=== PATIENT | female | born 1995 | race Caucasian/White ===

== ENCOUNTER 2018-08-20 00:29 | Emergency (ER) | payer OTHER ==
[~2018-08-20] VITALS: Ht 165.1 cm; Wt 86.2 kg
[2018-08-20] MEDS ORDERED: ALBUTEROL2.5 MG/31 INH (00:40)
[2018-08-20] MEDS ORDERED: MOBIC15 MG PO (01:04)
[2018-08-20 01:39] VITALS: BP 133/112
== END 2018-08-20 01:40 | disposition home or self-care (01) ==
LOC: M.ERS 00:29
DX: S70.02XA Contusion of left hip, initial encounter (principal); S40.022A Contusion of left upper arm, initial encounter; F17.210 Nicotine dependence, cigarettes, uncomplicated; Z90.49 Acquired absence of other specified parts of digestive tract; Z98.890 Other specified postprocedural states; W01.0XXA Fall on same level from slipping, tripping and stumbling without subsequent striking against object, initial encounter; Y93.89 Activity, other specified; Y92.89 Other specified places as the place of occurrence of the external cause; Y99.8 Other external cause status

== ENCOUNTER 2018-10-20 06:29 | Emergency (ER) | payer OTHER ==
[~2018-10-20] VITALS: Ht 165.1 cm; Wt 82.1 kg
[~2018-10-20 06:29] MED LIST: ALBUTEROL2.5 MG/31 INH; MOBIC15 MG PO
[2018-10-20] MEDS ORDERED: NOHOMEMEDICATIONS (06:41)
[2018-10-20] MEDS ORDERED: NAPROSYN500 MG PO (07:28)
[2018-10-20 07:46] VITALS: BP 124/68
== END 2018-10-20 07:46 | disposition home or self-care (01) ==
LOC: M.ERS 06:29
DX: S90.111A Contusion of right great toe without damage to nail, initial encounter (principal); F17.200 Nicotine dependence, unspecified, uncomplicated; Z90.49 Acquired absence of other specified parts of digestive tract; W20.8XXA Other cause of strike by thrown, projected or falling object, initial encounter; Y92.89 Other specified places as the place of occurrence of the external cause; Y93.89 Activity, other specified; Y99.8 Other external cause status

== ENCOUNTER 2019-02-07 15:40 | Emergency (ER) | payer OTHER ==
[~2019-02-07] VITALS: Ht 165.1 cm; Wt 87.5 kg
[~2019-02-07 15:40] MED LIST changes: +NAPROSYN500 MG PO; +NOHOMEMEDICATIONS
[2019-02-07 16:04] LABS: URINE BILIRUBIN NEGATIVE (Negative); URINE BLOOD NEGATIVE (Negative); URINE CLARITY CLEAR; URINE COLOR YELLOW; URINE GLUCOSE-RANDOM NEGATIVE (Negative); URINE KETONES NEGATIVE (Negative); URINE LEUKOCYTES-REFLEX TRACE (Negative); URINE NITRITE-REFLEX NEGATIVE (Negative); URINE PROTEIN NEGATIVE (Negative); URINE SPECIFIC GRAVITY 1.025 (1.005-1.030); URINE UROBILINOGEN 0.2 E.U./dl (0.2-1.0)
[2019-02-07 16:11] LABS: CASTS None Seen /LPF (None Seen); CRYSTALS None Seen /LPF (None Seen); MUCUS None Seen strn/LPF (None Seen); SQUAMOUS >10 Many /LPF (0-3)
[2019-02-07 16:12] LABS: BACTERIA-REFLEX 1-9 Few /HPF (None Seen); URINE WBC-REFLEX 0-5 Rare /HPF (0-5)
[2019-02-07 16:13] LABS: URINE RBC None Seen /HPF (0-2)
[2019-02-07 16:21] LABS: ABSOLUTE BASOPHILS 0.1 thou/uL (0.0-0.2); ABSOLUTE EOSINOPHILS 0.1 thou/uL (0.0-0.7); ABSOLUTE LYMPHOCYTES 2.2 thou/uL (0.8-5.3); ABSOLUTE MONOCYTES 0.8 thou/uL (0.0-1.2); ABSOLUTE NEUTROPHILS 6.4 thou/uL (1.6-8.1); BASOPHILS 1.1 %; EOSINOPHILS 1.3 %; HEMATOCRIT 42.3 % (37.0-47.0); HEMOGLOBIN 14.2 gm/dL (12.0-15.0); LYMPHOCYTES 22.7 %; MCH 29.4 pg (26.0-34.0); MCHC 33.7 g/dL (28.0-37.0); MCV 87.3 fL (80.0-100.0); MONOCYTES 8.3 %; MPV 6.8 fl. (7.2-11.1); NUCLEATED RBCS 0 /100WBC; PLATELET COUNT* 224 thou/uL (150-400); POLYS 66.6 %; RBC 4.84 mil/uL (4.20-5.00); RDW-CV 13.7 % (10.5-14.5); WBC 9.6 thou/uL (4.0-11.0)
[2019-02-07 16:34] LABS: ALBUMIN 3.6 g/dL (3.4-5.0); CALCIUM 8.8 mg/dL (8.5-10.1); CREATININE 1.1 mg/dL (0.6-1.3); POTASSIUM 3.4 mmol/L (3.5-5.1); TOTAL BILIRUBIN 0.3 mg/dL (<0.1-1.0); TOTAL PROTEIN 7.7 g/dL (6.4-8.2)
[2019-02-07] MEDS ORDERED: PROAIR HFA8.5 GM INH (17:00)
[2019-02-07 17:26] VITALS: BP 106/68
== END 2019-02-07 17:26 | disposition home or self-care (01) ==
LOC: M.ERS 15:40
PROVIDERS: Physician Assistant
DX: R06.00 Dyspnea, unspecified (principal); Z90.49 Acquired absence of other specified parts of digestive tract; Z98.890 Other specified postprocedural states

== ENCOUNTER 2019-02-20 17:38 | Emergency (ER) | payer OTHER ==
[~2019-02-20] VITALS: Ht 165.1 cm; Wt 87.5 kg
[~2019-02-20 17:38] MED LIST changes: +PROAIR HFA8.5 GM INH
[2019-02-20] MEDS ORDERED: NABUMETONE 750750 M1 PO (20:22)
[2019-02-20 21:34] VITALS: BP 136/75
== END 2019-02-20 21:47 | disposition home or self-care (01) ==
LOC: M.ERS 17:38
DX: M25.572 Pain in left ankle and joints of left foot (principal); G89.29 Other chronic pain; Z90.49 Acquired absence of other specified parts of digestive tract

== ENCOUNTER 2019-05-21 13:39 | Emergency (ER) | payer OTHER ==
[~2019-05-21] VITALS: Ht 167.6 cm; Wt 88.0 kg
[~2019-05-21 13:39] MED LIST changes: +NABUMETONE 750750 M1 PO
[2019-05-21 13:49] VITALS: BP 130/74
[2019-05-21] MEDS ORDERED: FLEXERIL PO (13:51)
[2019-05-21] MEDS ORDERED: ALEVE220 MG PO (13:51)
[2019-05-21] MEDS ORDERED: MOBIC7.5 MG PO (14:42)
== END 2019-05-21 14:58 | disposition home or self-care (01) ==
LOC: M.ERS 13:39
DX: M25.532 Pain in left wrist (principal); G89.29 Other chronic pain; Z90.49 Acquired absence of other specified parts of digestive tract; Z98.51 Tubal ligation status

== ENCOUNTER → 2019-06-08 | Emergency (ER) | payer OTHER ==
[~2019-06-08] VITALS: Ht 167.6 cm; Wt 86.2 kg
[~2019-06-08] MED LIST changes: +ALEVE220 MG PO; +FLEXERIL PO; +MOBIC7.5 MG PO; +TRAMADOL 50 MG50 MG PO
[2019-06-08 22:51] VITALS: BP 134/82
== END ==
LOC: M.ERS 22:00
DX: S93.492A Sprain of other ligament of left ankle, initial encounter (principal); G89.29 Other chronic pain; Z90.49 Acquired absence of other specified parts of digestive tract; Z98.51 Tubal ligation status; X58.XXXA Exposure to other specified factors, initial encounter; Y93.89 Activity, other specified; Y92.89 Other specified places as the place of occurrence of the external cause; Y99.8 Other external cause status

== ENCOUNTER 2019-06-11 20:28 | Emergency (ER) | payer OTHER ==
[~2019-06-11] VITALS: Ht 167.6 cm; Wt 89.8 kg
[2019-06-11 21:05] LABS: URINE BILIRUBIN NEGATIVE (Negative); URINE BLOOD NEGATIVE (Negative); URINE CLARITY CLEAR; URINE COLOR YELLOW; URINE GLUCOSE-RANDOM NEGATIVE (Negative); URINE KETONES NEGATIVE (Negative); URINE LEUKOCYTES-REFLEX 1+ (Negative); URINE NITRITE-REFLEX NEGATIVE (Negative); URINE PROTEIN NEGATIVE (Negative); URINE UROBILINOGEN 0.2 E.U./dl (0.2-1.0)
[2019-06-11 21:05] LABS: ABSOLUTE BASOPHILS 0.1 thou/uL (0.0-0.2); ABSOLUTE EOSINOPHILS 0.1 thou/uL (0.0-0.7); ABSOLUTE LYMPHOCYTES 2.5 thou/uL (0.8-5.3); ABSOLUTE NEUTROPHILS 8.8 thou/uL (1.6-8.1); BASOPHILS 0.6 %; EOSINOPHILS 0.7 %; HEMOGLOBIN 13.9 gm/dL (12.0-15.0); LYMPHOCYTES 20.3 %; MCV 87.8 fL (80.0-100.0); MPV 6.7 fl. (7.2-11.1); NUCLEATED RBCS 0 /100WBC; PLATELET COUNT* 265 thou/uL (150-400); POLYS 70.4 %; RBC 4.79 mil/uL (4.20-5.00); RDW-CV 13.6 % (10.5-14.5); WBC 12.5 thou/uL (4.0-11.0)
[2019-06-11 21:12] LABS: BACTERIA-REFLEX None Seen /HPF (None Seen); CASTS None Seen /LPF (None Seen); CRYSTALS None Seen /LPF (None Seen); SQUAMOUS >10 Many /LPF (0-3); URINE RBC None Seen /HPF (0-2); URINE WBC-REFLEX 0-5 Rare /HPF (0-5)
[2019-06-11 21:13] LABS: CALCIUM 8.6 mg/dL (8.5-10.1); POTASSIUM 3.8 mmol/L (3.5-5.1)
[2019-06-11 21:17] LABS: ALBUMIN 3.5 g/dL (3.4-5.0); TOTAL BILIRUBIN 0.2 mg/dL (<0.1-1.0); TOTAL PROTEIN 7.6 g/dL (6.4-8.2)
[2019-06-11] MEDS ORDERED: ONDANSETRON HCL4 M2 PO (21:45)
[2019-06-11] MEDS ORDERED: NABUMETONE 750750 M1 PO (21:45)
[2019-06-11] MEDS ORDERED: FLAGYL500 M1 PO (22:05)
[2019-06-11 22:14] VITALS: BP 110/91
== END 2019-06-11 22:16 | disposition home or self-care (01) ==
LOC: M.ERS 20:28
PROVIDERS: Nurse Practitioner Family
DX: N76.0 Acute vaginitis (principal); B96.89 Other specified bacterial agents as the cause of diseases classified elsewhere; G89.29 Other chronic pain; Z87.42 Personal history of other diseases of the female genital tract; Z98.51 Tubal ligation status

== ENCOUNTER 2019-09-12 23:45 | Emergency (ER) | payer OTHER ==
[~2019-09-12] VITALS: Ht 165.1 cm; Wt 92.1 kg
[~2019-09-12 23:45] MED LIST changes: +FLAGYL500 M1 PO; +ONDANSETRON HCL4 M2 PO
[2019-09-13 00:05] LABS: BE -3.1 mmol/L (-2 to +3); PCO2 35.7 mmHg (35.0-45.0); PO2 100.7 mmHg (75.0-100.0)
[2019-09-13 00:17] LABS: ABSOLUTE BASOPHILS 0.1 thou/uL (0.0-0.2); ABSOLUTE EOSINOPHILS 0.1 thou/uL (0.0-0.7); ABSOLUTE LYMPHOCYTES 2.4 thou/uL (0.8-5.3); ABSOLUTE MONOCYTES 0.8 thou/uL (0.0-1.2); ABSOLUTE NEUTROPHILS 6.5 thou/uL (1.6-8.1); BASOPHILS 0.5 %; HEMATOCRIT 40.3 % (37.0-47.0); HEMOGLOBIN 13.6 gm/dL (12.0-15.0); LYMPHOCYTES 24.4 %; MCH 29.4 pg (26.0-34.0); MCHC 33.7 g/dL (28.0-37.0); MCV 87.2 fL (80.0-100.0); MONOCYTES 8.4 %; MPV 6.8 fl. (7.2-11.1); NUCLEATED RBCS 0 /100WBC; PLATELET COUNT* 225 thou/uL (150-400); POLYS 65.7 %; RBC 4.62 mil/uL (4.20-5.00); RDW-CV 13.6 % (10.5-14.5); WBC 9.9 thou/uL (4.0-11.0)
[2019-09-13 00:25] LABS: URINE BILIRUBIN NEGATIVE (Negative); URINE BLOOD TRACE (Negative); URINE CLARITY CLEAR; URINE COLOR YELLOW; URINE GLUCOSE-RANDOM NEGATIVE (Negative); URINE KETONES NEGATIVE (Negative); URINE LEUKOCYTES-REFLEX NEGATIVE (Negative); URINE NITRITE-REFLEX NEGATIVE (Negative); URINE PROTEIN NEGATIVE (Negative); URINE SPECIFIC GRAVITY >= 1.030 (1.005-1.030)
[2019-09-13 00:25] LABS: CALCIUM 7.9 mg/dL (8.5-10.1); POTASSIUM 3.2 mmol/L (3.5-5.1)
[2019-09-13 00:29] LABS: ALBUMIN 3.3 g/dL (3.4-5.0); TOTAL BILIRUBIN 0.3 mg/dL (<0.1-1.0); TOTAL PROTEIN 7.4 g/dL (6.4-8.2)
[2019-09-13 00:30] LABS: AMP/METHAMP Negative (Negative); BARBITURATES Negative (Negative); BENZODIAZEPINES POSITIVE (Negative); COCAINE Negative (Negative); METHADONE Negative (Negative); OPIATES Negative (Negative); PCP Negative (Negative); THC POSITIVE (Negative)
[2019-09-13 00:37] LABS: ALCOHOL < 10 mg/dL (<10); SALICYLATE < 2.8 mg/dL (2.8-20.0)
[2019-09-13 00:47] LABS: ACETAMINOPHEN < 2 ug/mL (10-30)
[2019-09-13 07:13] VITALS: BP 121/76
--- NOTE | 2019-09-14 10:53 | EKG ---
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 : 1995 Requested By: Laureano Pineda Order Number: [id number] MD: Joaquin Galvez Measurements Intervals [place] Rate: 136 P: 48 WI: 141 QRS: 78 QRSD: 80 T: 35 QT: 298 QTc: 449 Interpretive Statements Sinus tachycardia Left atrial enlargement RSR' in V1 or V2, right VCD or RVH Borderline repol abnrm, anterolateral leads Baseline wander in lead(s) I,III,aVR,aVL No previous ECG available for comparison Electronically Signed On 09-14-2019 10:52:41 ABA TUTOR by Joaquin Galvez [email or web address] <ELECTRONICALLY SIGNED> By: Joaquin Galvez MD, FACC 09/14/19 1052 2350 2350 Joaquin Galvez MD, FAC /EPI
== END 2019-09-13 07:15 | disposition home or self-care (01) ==
LOC: M.ERS 23:45
PROVIDERS: Family Medicine
DX: F19.10 Other psychoactive substance abuse, uncomplicated (principal); R41.82 Altered mental status, unspecified; G89.29 Other chronic pain; Z98.51 Tubal ligation status; Z90.49 Acquired absence of other specified parts of digestive tract

== ENCOUNTER 2019-12-29 08:15 | Emergency (ER) | payer OTHER ==
[~2019-12-29] VITALS: Ht 165.1 cm; Wt 84.4 kg
[2019-12-29 09:10] LABS: INFLUENZA A ANTIGEN Negative (Negative); INFLUENZA B ANTIGEN Negative (Negative)
[2019-12-29] MEDS ORDERED: ZOFRAN ODT4 MG PO (09:16)
[2019-12-29] MEDS ORDERED: IBUPROFEN 800800 MG PO (09:16)
[2019-12-29 09:32] VITALS: BP 140/60
== END 2019-12-29 09:32 | disposition home or self-care (01) ==
LOC: M.ERS 08:15
PROVIDERS: Personal Emergency Response Attendant
DX: B34.9 Viral infection, unspecified (principal); R51 Headache; G89.29 Other chronic pain; Z90.49 Acquired absence of other specified parts of digestive tract; Z98.51 Tubal ligation status

== ENCOUNTER → 2020-06-27 | Emergency (ER) | payer OTHER ==
[~2020-06-27] VITALS: Ht 165.1 cm; Wt 82.1 kg
[~2020-06-27] MED LIST changes: +ALBUTEROL2.5 MG/0.1 INH; +AMOXICILLIN875 MG PO; +HYDROCODON-ACE1 EAC7 PO; +IBUPROFEN 800800 MG PO; +ZOFRAN ODT4 MG PO; +magic mouthwash SWISH&SPIT
[2020-06-27 22:04] VITALS: BP 123/78
== END ==
LOC: M.ERS 21:56
DX: J02.0 Streptococcal pharyngitis (principal); R07.89 Other chest pain; J45.909 Unspecified asthma, uncomplicated; F17.210 Nicotine dependence, cigarettes, uncomplicated; Z98.51 Tubal ligation status; Z90.49 Acquired absence of other specified parts of digestive tract; Z79.899 Other long term (current) drug therapy

== ENCOUNTER 2020-08-06 06:18 | Emergency (ER) | payer OTHER ==
[~2020-08-06] VITALS: Ht 165.1 cm; Wt 86.2 kg
[2020-08-06 07:59] VITALS: BP 125/73
== END 2020-08-06 07:59 | disposition home or self-care (01) ==
LOC: M.ERS 06:18
DX: S06.0X0A Concussion without loss of consciousness, initial encounter (principal); R11.2 Nausea with vomiting, unspecified; J45.909 Unspecified asthma, uncomplicated; G89.29 Other chronic pain; Z90.49 Acquired absence of other specified parts of digestive tract; Z98.51 Tubal ligation status; W22.8XXA Striking against or struck by other objects, initial encounter; Y93.89 Activity, other specified; Y92.89 Other specified places as the place of occurrence of the external cause; Y99.8 Other external cause status

== ENCOUNTER 2020-08-20 15:17 | Emergency (ER) | payer OTHER ==
[~2020-08-20] VITALS: Ht 165.1 cm; Wt 86.2 kg
[2020-08-20] MEDS ORDERED: MEDROLDOSEPACK PO (17:32)
[2020-08-20] MEDS ORDERED: NORCO 5-325 TA1 EAC2 PO (17:32)
[2020-08-20] MEDS ORDERED: NAPROSYN500 MG PO (17:32)
[2020-08-20 17:40] VITALS: BP 115/68
== END 2020-08-20 17:41 | disposition home or self-care (01) ==
LOC: M.ERS 15:17
DX: M25.532 Pain in left wrist (principal); J45.909 Unspecified asthma, uncomplicated; Z98.51 Tubal ligation status; Z90.49 Acquired absence of other specified parts of digestive tract

== ENCOUNTER 2020-09-06 21:33 | Emergency (ER) | payer OTHER ==
[~2020-09-06] VITALS: Ht 165.1 cm; Wt 88.0 kg
[~2020-09-06 21:33] MED LIST changes: +MEDROLDOSEPACK PO; +NORCO 5-325 TA1 EAC2 PO
[2020-09-06 23:47] VITALS: BP 108/64
== END 2020-09-06 23:47 | disposition home or self-care (01) ==
LOC: M.ERS 21:33
DX: M79.644 Pain in right finger(s) (principal); J45.909 Unspecified asthma, uncomplicated; Z98.51 Tubal ligation status; Z90.49 Acquired absence of other specified parts of digestive tract

== ENCOUNTER 2020-12-03 16:32 | Emergency (ER) | payer OTHER ==
[~2020-12-03] VITALS: Ht 165.1 cm; Wt 87.5 kg
[2020-12-03 17:40] VITALS: BP 130/89
== END 2020-12-03 17:40 | disposition home or self-care (01) ==
LOC: M.ERS 16:32
DX: S63.591A Other specified sprain of right wrist, initial encounter (principal); J45.909 Unspecified asthma, uncomplicated; Z90.49 Acquired absence of other specified parts of digestive tract; Z98.51 Tubal ligation status; W21.89XA Striking against or struck by other sports equipment, initial encounter; Y93.72 Activity, wrestling; Y92.89 Other specified places as the place of occurrence of the external cause; Y99.8 Other external cause status

== ENCOUNTER 2021-02-20 21:31 | Emergency (ER) | payer OTHER ==
[~2021-02-20] VITALS: Ht 165.1 cm; Wt 92.1 kg
[2021-02-20 22:34] LABS: ABSOLUTE LYMPHOCYTES 1.4 thou/uL (0.8-5.3); ABSOLUTE MONOCYTES 0.7 thou/uL (0.0-1.2); ABSOLUTE NEUTROPHILS 4.2 thou/uL (1.6-8.1); BASOPHILS 0.5 %; EOSINOPHILS 0.6 %; HEMATOCRIT 43.5 % (37.0-47.0); HEMOGLOBIN 14.5 gm/dL (12.0-15.0); LYMPHOCYTES 22.1 %; MCH 29.3 pg (26.0-34.0); MCHC 33.4 g/dL (28.0-37.0); MCV 87.9 fL (80.0-100.0); MONOCYTES 11.5 %; MPV 6.7 fl. (7.2-11.1); NUCLEATED RBCS 0 /100WBC; PLATELET COUNT* 205 thou/uL (150-400); POLYS 65.3 %; RBC 4.95 mil/uL (4.20-5.00); RDW-CV 13.7 % (10.5-14.5); WBC 6.4 thou/uL (4.0-11.0)
[2021-02-20 22:40] LABS: CALCIUM 8.6 mg/dL (8.5-10.1); CREATININE 0.9 mg/dL (0.6-1.3); POTASSIUM 3.6 mmol/L (3.5-5.1)
[2021-02-20 22:45] LABS: ALBUMIN 3.4 g/dL (3.4-5.0); TOTAL BILIRUBIN 0.2 mg/dL (<0.1-1.0); TOTAL PROTEIN 7.9 g/dL (6.4-8.2)
[2021-02-20 22:48] LABS: URINE BILIRUBIN NEGATIVE (Negative); URINE BLOOD NEGATIVE (Negative); URINE CLARITY CLEAR; URINE COLOR YELLOW; URINE GLUCOSE-RANDOM NEGATIVE (Negative); URINE KETONES NEGATIVE (Negative); URINE LEUKOCYTES-REFLEX TRACE (Negative); URINE NITRITE-REFLEX NEGATIVE (Negative); URINE PROTEIN NEGATIVE (Negative); URINE SPECIFIC GRAVITY 1.015 (1.005-1.030); URINE UROBILINOGEN 0.2 E.U./dl (0.2-1.0)
[2021-02-20 22:54] LABS: CASTS None Seen /LPF (None Seen); MUCUS None Seen strn/LPF (None Seen); SQUAMOUS >10 Many /LPF (0-3); URINE WBC-REFLEX 0-5 Rare /HPF (0-5)
[2021-02-20 22:55] LABS: AMP/METHAMP Negative (Negative); BACTERIA-REFLEX 1-9 Few /HPF (None Seen); BARBITURATES Negative (Negative); BENZODIAZEPINES Negative (Negative); COCAINE Negative (Negative); CRYSTALS None Seen /LPF (None Seen); METHADONE Negative (Negative); OPIATES Negative (Negative); PCP Negative (Negative); THC Negative (Negative); URINE RBC None Seen /HPF (0-2)
[2021-02-21 03:18] LABS: PROTIME 10.2 Seconds (9.20-11.50)
[2021-02-21] MEDS ORDERED: MEDROLDOSEPACK PO (03:38)
[2021-02-21] MEDS ORDERED: ULTRAM50 MG PO (03:38)
[2021-02-21 05:48] VITALS: BP 111/74
--- NOTE | 2021-02-21 14:26 | EKG ---
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 : 1995 Requested By: Prachi Vasquez Order Number: [id number] Belén MD: Alfred Oliver Measurements Intervals [employer] Rate: 81 P: 50 MN: 140 QRS: 30 QRSD: 81 T: -6 QT: 350 QTc: 407 Interpretive Statements Sinus rhythm Probable left atrial enlargement Borderline T abnormalities, inferior leads Compared to ECG 09/12/2019 23:50:07 T-wave abnormality now present Sinus tachycardia no longer present Right ventricular hypertrophy no longer present Electronically Signed On 02-21-2021 14:26:15 CDT by Alfred Oliver [email or web address] <ELECTRONICALLY SIGNED> By: Alfred Oliver MD, [facility] 02/21/21 1426 39 39 Alfred Oliver MD, FAC /EPI
== END 2021-02-21 05:48 | disposition home or self-care (01) ==
LOC: M.ERS 21:31
PROVIDERS: Personal Emergency Response Attendant
DX: U07.1 COVID-19 (principal); R07.89 Other chest pain; Z90.49 Acquired absence of other specified parts of digestive tract; Z98.51 Tubal ligation status

== ENCOUNTER 2021-04-06 19:18 | Emergency (ER) | payer OTHER ==
[~2021-04-06] VITALS: Ht 165.1 cm; Wt 93.0 kg
[~2021-04-06 19:18] MED LIST changes: +ULTRAM50 MG PO
[2021-04-06 20:40] VITALS: BP 98/71
== END 2021-04-06 20:40 | disposition home or self-care (01) ==
LOC: M.ERS 19:18
DX: S63.592A Other specified sprain of left wrist, initial encounter (principal); J45.909 Unspecified asthma, uncomplicated; G89.29 Other chronic pain; Z90.89 Acquired absence of other organs; Z90.49 Acquired absence of other specified parts of digestive tract; W18.39XA Other fall on same level, initial encounter; Y93.89 Activity, other specified; Y92.89 Other specified places as the place of occurrence of the external cause; Y99.0 Civilian activity done for income or pay

== ENCOUNTER 2021-06-05 21:14 | Emergency (ER) | payer OTHER ==
[~2021-06-05] VITALS: Ht 165.1 cm; Wt 92.1 kg
[2021-06-05 22:31] VITALS: BP 127/85
== END 2021-06-05 22:32 | disposition home or self-care (01) ==
LOC: M.ERS 21:14
DX: R05 Cough (principal); Z20.822 Contact with and (suspected) exposure to COVID-19; J45.909 Unspecified asthma, uncomplicated; G43.909 Migraine, unspecified, not intractable, without status migrainosus; Z90.49 Acquired absence of other specified parts of digestive tract; Z79.51 Long term (current) use of inhaled steroids

== ENCOUNTER 2021-06-10 17:48 | Emergency (ER) | payer OTHER ==
[~2021-06-10] VITALS: Ht 165.1 cm; Wt 92.1 kg
[2021-06-10 19:05] VITALS: BP 111/70
== END 2021-06-10 19:05 | disposition home or self-care (01) ==
LOC: M.ERS 17:48
DX: B34.9 Viral infection, unspecified (principal); Z20.822 Contact with and (suspected) exposure to COVID-19; J45.909 Unspecified asthma, uncomplicated; G43.909 Migraine, unspecified, not intractable, without status migrainosus; F17.200 Nicotine dependence, unspecified, uncomplicated; Z79.51 Long term (current) use of inhaled steroids

== ENCOUNTER 2021-08-25 19:19 | Emergency (ER) | payer OTHER ==
[~2021-08-25] VITALS: Ht 165.1 cm; Wt 90.3 kg
[2021-08-25] MEDS ORDERED: IBUPROFEN 800800 M1 PO (20:26)
[2021-08-25 20:40] VITALS: BP 115/82
== END 2021-08-25 20:40 | disposition home or self-care (01) ==
LOC: M.ERS 19:19
DX: S63.502A Unspecified sprain of left wrist, initial encounter (principal); J45.909 Unspecified asthma, uncomplicated; G43.909 Migraine, unspecified, not intractable, without status migrainosus; F17.210 Nicotine dependence, cigarettes, uncomplicated; Z98.51 Tubal ligation status; Z90.49 Acquired absence of other specified parts of digestive tract; Z79.899 Other long term (current) drug therapy; W01.0XXA Fall on same level from slipping, tripping and stumbling without subsequent striking against object, initial encounter; Y93.89 Activity, other specified; Y92.89 Other specified places as the place of occurrence of the external cause; Y99.8 Other external cause status

== ENCOUNTER 2021-10-02 21:28 | Emergency (ER) | payer OTHER ==
[~2021-10-02] VITALS: Ht 165.1 cm; Wt 90.7 kg
[~2021-10-02 21:28] MED LIST changes: +IBUPROFEN 800800 M1 PO
[2021-10-02 21:36] VITALS: BP 118/82
[2021-10-02 22:16] LABS: INFLUENZA A ANTIGEN Negative (Negative); INFLUENZA B ANTIGEN Negative (Negative)
[2021-10-02] MEDS ORDERED: AMOXICILLIN 50500 M1 PO (22:21)
[2021-10-02] MEDS ORDERED: PROAIR HFA8.5 GM INH (22:21)
[2021-10-02] MEDS ORDERED: TESSALON PERLE100 MG PO (22:21)
== END 2021-10-02 22:23 | disposition home or self-care (01) ==
LOC: M.ERS 21:28
PROVIDERS: Emergency Medicine
DX: J02.0 Streptococcal pharyngitis (principal); Z20.822 Contact with and (suspected) exposure to COVID-19; G43.909 Migraine, unspecified, not intractable, without status migrainosus; J45.909 Unspecified asthma, uncomplicated; G89.29 Other chronic pain; Z90.49 Acquired absence of other specified parts of digestive tract; Z98.51 Tubal ligation status

== ENCOUNTER 2021-10-18 12:51 | Emergency (ER) | payer BC ==
[~2021-10-18] VITALS: Ht 165.1 cm; Wt 90.3 kg
[~2021-10-18 12:51] MED LIST changes: +AMOXICILLIN 50500 M1 PO; +TESSALON PERLE100 MG PO
[2021-10-18 15:38] VITALS: BP 110/76
== END 2021-10-18 15:39 | disposition home or self-care (01) ==
LOC: M.ERS 12:51
DX: R05.9 Cough, unspecified (principal); R50.9 Fever, unspecified; R06.02 Shortness of breath; J45.909 Unspecified asthma, uncomplicated; G43.909 Migraine, unspecified, not intractable, without status migrainosus; Z53.21 Procedure and treatment not carried out due to patient leaving prior to being seen by health care provider; Z90.49 Acquired absence of other specified parts of digestive tract; Z98.51 Tubal ligation status; Z98.890 Other specified postprocedural states

== ENCOUNTER 2021-12-08 21:02 | Emergency (ER) | payer BC ==
[~2021-12-08] VITALS: Ht 165.1 cm; Wt 90.7 kg
[2021-12-08 21:34] LABS: URINE BLOOD NEGATIVE (Negative); URINE CLARITY CLEAR; URINE COLOR YELLOW; URINE GLUCOSE-RANDOM NEGATIVE (Negative); URINE KETONES NEGATIVE (Negative); URINE LEUKOCYTES-REFLEX TRACE (Negative); URINE NITRITE-REFLEX NEGATIVE (Negative); URINE PROTEIN 1+ (Negative); URINE SPECIFIC GRAVITY >= 1.030 (1.005-1.030); URINE UROBILINOGEN 0.2 E.U./dl (0.2-1.0)
[2021-12-08 21:37] LABS: ICTOTEST (BILI CONFIRMATORY) Positive (Negative); URINE BILIRUBIN 1+ (Negative)
[2021-12-08 21:53] LABS: HEMATOCRIT 45.6 % (37.0-47.0); HEMOGLOBIN 15.1 gm/dL (12.0-15.0); MCH 28.7 pg (26.0-34.0); NUCLEATED RBCS 0 /100WBC; PLATELET COUNT* 260 thou/uL (150-400); RBC 5.24 mil/uL (4.20-5.00); RDW-CV 14.7 % (10.5-14.5); WBC 20.7 thou/uL (4.0-11.0)
[2021-12-08 22:15] LABS: CREATININE 0.9 mg/dL (0.6-1.3); POTASSIUM 4.3 mmol/L (3.5-5.1)
[2021-12-08 22:19] LABS: ALBUMIN 4.2 g/dL (3.4-5.0); TOTAL BILIRUBIN 1.2 mg/dL (<0.1-1.0); TOTAL PROTEIN 8.9 g/dL (6.4-8.2)
[2021-12-08 22:33] LABS: CASTS None Seen /LPF (None Seen); MUCUS 4-6 Moderate strn/LPF (None Seen); SQUAMOUS >10 Many /LPF (0-3)
[2021-12-08 22:36] LABS: URINE WBC-REFLEX 0-5 Rare /HPF (0-5)
[2021-12-08 22:37] LABS: AMORPHOUS URATES Moderate /LPF (None Seen); BACTERIA-REFLEX 1-9 Few /HPF (None Seen); URINE RBC None Seen /HPF (0-2)
[2021-12-08 23:16] LABS: ABSOLUTE LYMPHOCYTES 0.6 thou/uL (0.8-5.3); ABSOLUTE MONOCYTES 0.2 thou/uL (0.0-1.2); ABSOLUTE NEUTROPHILS 19.9 thou/uL (1.6-8.1)
[2021-12-08 23:17] LABS: PLATELET ESTIMATE ADEQUATE
[2021-12-09] MEDS ORDERED: METRONIDAZOLE500 M4 PO (01:54)
[2021-12-09] MEDS ORDERED: ZOFRAN ODT4 MG PO (01:54)
[2021-12-09] MEDS ORDERED: DOXYCYCLINE 10100 MG PO (01:54)
[2021-12-09] MEDS ORDERED: COMPAZINE10 M2 PO (01:54)
[2021-12-09 02:10] VITALS: BP 109/74
== END 2021-12-09 02:10 | disposition home or self-care (01) ==
LOC: M.ERS 21:02
PROVIDERS: Physician Assistant
DX: K52.9 Noninfective gastroenteritis and colitis, unspecified (principal); A59.9 Trichomoniasis, unspecified; J45.909 Unspecified asthma, uncomplicated; G43.909 Migraine, unspecified, not intractable, without status migrainosus; Z90.49 Acquired absence of other specified parts of digestive tract; Z98.51 Tubal ligation status; Z98.890 Other specified postprocedural states; Z79.51 Long term (current) use of inhaled steroids